=== PATIENT | male | born 1975 | race Caucasian/White ===

== ENCOUNTER 2016-11-13 12:27 | Emergency (ER) | payer OTHER ==
[~2016-11-13] VITALS: Ht 190.5 cm; Wt 75.0 kg
[2016-11-13 12:27] VITALS: BP 158/82
[~2016-11-13 12:27] MED LIST: /ESOM40CA PO; ASPI81TA85 PO; CLOP75TA2 PO; FOLI1TAB86 PO; LYRI75CA PO; MEDR8TAB PO; NICO21PAT EXT; NO HISTORICAL MEDS; VITA100T2 PO
[2016-11-13] MEDS ORDERED: IBUP-1022 PO (12:54)
--- NOTE | 2016-11-13 13:42 | REP ---
Duplex extremity venous ultrasound: Right lower extremity History: Leg pain and swelling. Findings: The deep veins are anechoic and fully compressible from the groin to the popliteal fossa in the right lower extremity. Color flow imaging is homogeneous. Spectral Doppler interrogation demonstrates intact respiratory variation in flow and normal manual augmentation of flow. There is no evidence of deep vein thrombosis. Impression: Negative right lower extremity duplex venous ultrasound. No evidence of deep vein thrombosis. Signed by Herbie Palm MD 11/13/2016 01:34 P
[2016-11-13 14:52] LABS: BASO % 0.6 % (0.0-1.0); EOS # 0.3 K/mm3 (0.0-0.50); EOS % 3.9 % (0.0-3.0); LARGE UNSTAINED CELL # 0.1 K/mm3 (0.0-0.4); LARGE UNSTAINED CELL % 1.6 % (0.0-4.0); LYMPH # 1.4 K/mm3 (1.5-4.5); LYMPH % 20.7 % (24.0-44.0); MEAN CORPUSCULAR HEMOGLOBIN 32.8 pg (27.0-33.0); MEAN CORPUSCULAR HGB CONC 33.7 g/dl (32.0-36.5); MEAN CORPUSCULAR VOLUME 97.1 fl (80.0-96.0); MONO # 0.3 K/mm3 (0.0-0.8); MONO % 4.3 % (0.0-5.0); NEUTROPHILS # 4.7 K/mm3 (1.8-7.7); NEUTROPHILS % 68.8 % (36.0-66.0); PLATELET COUNT, AUTOMATED 436 k/mm3 (150-450); RED CELL DISTRIBUTION WIDTH 11.8 % (11.5-14.5); WHITE BLOOD COUNT 6.8 K/mm3 (4.0-10.0)
[2016-11-13 15:12] LABS: ALBUMIN 4.4 GM/DL (3.2-5.2); ALBUMIN/GLOBULIN RATIO 1.52 (1.00-1.93); ALKALINE PHOSPHATASE 75 U/L (45-117); ALT/SGPT 27 U/L (12-78); ANION GAP 6 MEQ/L (8-16); AST/SGOT 18 U/L (15-37); BILIRUBIN,DIRECT 0.2 MG/DL (0.0-0.2); BILIRUBIN,TOTAL 0.6 MG/DL (0.2-1.0); BLOOD UREA NITROGEN 17 MG/DL (7-18); CARBON DIOXIDE LEVEL 29 MEQ/L (21-32); CHLORIDE LEVEL 105 MEQ/L (98-107); CREATININE FOR GFR 0.79 MG/DL (0.70-1.30); GLOMERULAR FILTRATION RATE > 60.0 (>60); GLUCOSE, FASTING 97 MG/DL (70-105); POTASSIUM SERUM 4.5 MEQ/L (3.5-5.1); SODIUM LEVEL 140 MEQ/L (136-145); TOTAL PROTEIN 7.3 GM/DL (6.4-8.2)
== END 2016-11-13 15:43 | disposition home or self-care (01) ==
LOC: M ED 12:27
DX: R22.41 Localized swelling, mass and lump, right lower limb (principal); F17.210 Nicotine dependence, cigarettes, uncomplicated; Z79.899 Other long term (current) drug therapy; Z79.82 Long term (current) use of aspirin

== ENCOUNTER 2017-04-20 10:48 | Emergency (ER) | payer MEDICAID, OTHER, SELFPAY ==
[2017-04-20] MEDS: diazePAM 5 MG TAB PO ×2 (12:23)
[2017-04-20] MEDS: methylPREDNISolone INJ 125 MG/2 ML VIAL (J2930) IM ×2 (12:23)
[2017-04-20] MEDS ORDERED: ONDANSETRON 4 MG ORAL DISINTEGRATING TAB (S0181) As Ordered ×2 (12:44)
[2017-04-20] MEDS: ONDANSETRON 4 MG ORAL DISINTEGRATING TAB (S0181) PO ×2 (12:51)
== END 2017-04-20 13:42 | disposition home or self-care (01) ==
LOC: M ED 10:48
DX: M54.12 Radiculopathy, cervical region (principal); M62.838 Other muscle spasm; I10 Essential (primary) hypertension; Z86.73 Personal history of transient ischemic attack (TIA), and cerebral infarction without residual deficits; R20.2 Paresthesia of skin; F17.200 Nicotine dependence, unspecified, uncomplicated
CPT/HCPCS: J2930

== ENCOUNTER 2019-09-09 16:02 | Emergency (ER) | payer MEDICAID, OTHER ==
[~2019-09-09] VITALS: Ht 188 cm; Wt 70.8 kg
[~2019-09-09 16:02] MED LIST changes: -/ESOM40CA PO; +IBUP-1022 PO; +NEXI1CAP3 PO; +NICO21DI3 EXT; -NICO21PAT EXT; +PRED20TA PO; +VALI5TAB PO; +ZOFR4TAB14 PO
[2019-09-09] MEDS ORDERED: BOOSTRIX/ADACEL VACCINE (DIPHTH/PERTUSS/ACELL/TETANUS) 0.5ML SYR IM ONE (17:15)
[2019-09-09] MEDS ORDERED: LIDOCAINE 1% MDV 20ML VIAL INFIL ONE (17:15)
[2019-09-09] MEDS ORDERED: AUGM875T28 PO (17:56)
[2019-09-09] MEDS ORDERED: NEOSPORIN OINT 0.9 GM PKT TOP ONE (18:00)
[2019-09-09 18:17] VITALS: BP 112/65
== END 2019-09-09 18:19 | disposition home or self-care (01) ==
LOC: M ED 16:02
DX: S61.501A Unspecified open wound of right wrist, initial encounter (principal); S61.401A Unspecified open wound of right hand, initial encounter; W54.0XXA Bitten by dog, initial encounter; Y92.89 Other specified places as the place of occurrence of the external cause; Y99.0 Civilian activity done for income or pay; I25.10 Atherosclerotic heart disease of native coronary artery without angina pectoris; G89.29 Other chronic pain; M54.9 Dorsalgia, unspecified; F17.210 Nicotine dependence, cigarettes, uncomplicated